=== PATIENT | male | born 1990 | race Hispanic/Latino ===

== ENCOUNTER 2023-06-08 09:21 | Emergency (ER) | payer OTHER ==
[~2023-06-08] VITALS: Ht 167.6 cm; Wt 73.5 kg
[2023-06-08 09:28] VITALS: O2SAT 98
[2023-06-08 09:44] LABS: RAPID GROUP A STREP negative (NEGATIVE)
[2023-06-08 09:49] LABS: SARS-CoV-2, RNA, NAAT NEGATIVE SARS CoV-2 (NEGATIVE)
[2023-06-08 09:57] LABS: INFLUENZA TYPE A Negative For Type A (NEGATIVE); INFLUENZA TYPE B Negative For Type B (NEGATIVE)
[2023-06-08 11:57] VITALS: BP 118/71; PULSE 82; RESP 18
[2023-06-08] MEDS ORDERED: OSEL75 PO (12:02)
== END 2023-06-08 12:06 | disposition home or self-care (01) ==
LOC: EDH 09:21
DX: R50.9 Fever, unspecified (principal); M79.10 Myalgia, unspecified site; Z20.828 Contact with and (suspected) exposure to other viral communicable diseases; Z20.822 Contact with and (suspected) exposure to COVID-19
CPT/HCPCS: 99283; 87635; 87880; 87804 ×2; C9803

== ENCOUNTER 2023-10-29 07:37 | Emergency (ER) | payer OTHER ==
[~2023-10-29] VITALS: Ht 167.6 cm; Wt 69.9 kg
[~2023-10-29 07:37] MED LIST: OSEL75 PO
[2023-10-29] MEDS: UNASYN 1.5GM+NS 100ML IV SCH (08:02)
[2023-10-29 08:07] VITALS: BP 126/70; PULSE 69; RESP 14; O2SAT 100
== END 2023-10-29 08:28 | disposition home or self-care (01) ==
LOC: EDH 07:37
DX: S02.5XXA Fracture of tooth (traumatic), initial encounter for closed fracture (principal); K04.7 Periapical abscess without sinus; X58.XXXA Exposure to other specified factors, initial encounter; Y93.89 Activity, other specified; Y92.89 Other specified places as the place of occurrence of the external cause; Y99.8 Other external cause status
CPT/HCPCS: 99284; 96365; J0295

== ENCOUNTER 2024-12-09 16:23 | Emergency (ER) | payer BC ==
[~2024-12-09] VITALS: Ht 167.6 cm; Wt 76.2 kg
--- NOTE | 2024-12-09 19:08 | NUR ---
ASSUMED CARE AT THIS TIME PT MOVED FROM LOBBY INTO FAST TRACK
[2024-12-09] MEDS ORDERED: KETO10TA2 PO (19:45)
--- NOTE | 2024-12-09 19:49 | ERN ---
General Chief Complaint: Hip Pain/Injury Stated Complaint: SEVERE HIP PAIN Time Seen by MD: 16:43 Time Seen by Midlevel: 16:43 Source: patient History of Present Illness Allergies: Coded Allergies: No Known Drug Allergies (Unverified Allergy, Unknown, 06/08/23) Home Meds Active Scripts Oseltamivir Phosphate (Tamiflu) 75 Mg Cap, 75 MG PO DAILY, #7 CAP Prov:REHAN NARVAEZ MD 06/08/23 Past Medical History Past Medical History: No Pertinent History Past Surgical History: None Social History Social History: Negative, Lives with family ED Course Orders Procedure Category Date Status Time Ketorolac PHA 12/09/24 Logged Tromethamine 30mg/Ml 20:00 Orphenadrine Citrate PHA 12/09/24 Logged (Norflex) 20:00 Triamcinolone Acet PHA 12/09/24 Logged 40mg/Ml 1ml (Kenalog 20:00 Current Medications Medications (Trade) Dose Ordered Sig/Pravin Route PRN Reason Start Time Stop Time Status Last Admin Dose Admin Ketorolac Tromethamine (toRADol) 30 mg ONCE ONCE IM 12/09/24 20:00 12/09/24 20:01 UNV Orphenadrine Citrate (Norflex) 60 mg ONCE ONCE IM 12/09/24 20:00 12/09/24 20:01 UNV Triamcinolone Acetonide (Kenalog 40) 40 mg ONCE ONCE IM 12/09/24 20:00 12/09/24 20:01 UNV Vital Signs Date Time Temp Pulse Resp B/P (MAP) Pulse Ox O2 Delivery O2 Flow Rate FiO2 12/09/24 16:48 97.5 79 18 137/87 98 Room Air DX & DISP Disposition: Discharge Departure Impression: Primary Impression: Sciatica, right side Condition: Stable Scripts Ketorolac Tromethamine (Ketorolac Tromethamine) 10 Mg Tablet 1 TAB PO TID for pain for 5 Days, #15 TAB 0 Refills Prov: AMANDA COOPER 12/09/24 Referrals: SELF,REFERRAL (PCP) LUKE VICKERS MD I have reviewed the case, and I agree with, Diagnosis and Plan AMANDA COOPER December 09, 2024 19:49
[2024-12-09] MEDS: TRIAMCINOLONE ACETONIDE 40 MG/ML 1ML VIAL IM ONE (19:56)
[2024-12-09] MEDS: ORPHENADRINE 60MG/2ML IM ONE (19:56)
[2024-12-09] MEDS: ketOROlac 30MG VIAL (30MG/ML) IM ONE (19:57)
[2024-12-09 20:04] VITALS: BP 127/85; PULSE 78; RESP 18; TEMP 97.9; O2SAT 98
== END 2024-12-09 20:09 | disposition home or self-care (01) ==
LOC: EDH 16:23
DX: M54.31 Sciatica, right side (principal)
CPT/HCPCS: 99284; 96372 ×3; J1885; J3301; J2360

== ENCOUNTER 2025-03-05 16:47 | Emergency (ER) | payer BC ==
[~2025-03-05] VITALS: Ht 167.6 cm; Wt 73.5 kg
[~2025-03-05 16:47] MED LIST changes: +KETO10TA2 PO
--- NOTE | 2025-03-05 16:54 | ERN ---
ED Note History of Present Illness Stated Complaint: HEADACHE,FEVER,CHILLS,BODYACHES,SORE THROAT Chief Complaint: Flu Symptoms Time Seen by MD: 16:52 Dictation: PATIENT IS A 34-YEAR-OLD MALE COMING IN TODAY WITH FEVER CHILLS AND FLU-LIKE SYMPTOMS TO INCLUDE BODY ACHES CLEAR RUNNY NOSE WITH DRY COUGH AND SORE THROAT WITH PAINFUL SWALLOWING ONSET YESTERDAY. NO LOSS OF TASTE OR SMELL. NO NAUSEA VOMITING NO DIARRHEA NO PRIMARY CARE DOCTOR. STAY WORKS AT [facility] Allergies: Coded Allergies: No Known Drug Allergies (Unverified Allergy, Unknown, 06/08/23) Home Meds Active Scripts Ketorolac Tromethamine (Ketorolac Tromethamine) 10 Mg Tablet, 1 TAB PO TID for pain for 5 Days, #15 TAB 0 Refills Prov:AMANDA COOPER 12/09/24 Oseltamivir Phosphate (Tamiflu) 75 Mg Cap, 75 MG PO DAILY, #7 CAP Prov:REHAN NARVAEZ MD 06/08/23 Past Medical History Past Medical History: No Pertinent History Surgical History: None Social History: Negative, Lives with family RN Note Reviewed/Agreed w/PFSH: Yes Review of System Dictation CONSTITUTIONAL: Negative except for HPI fever chills swallowing malaise HEAD/FACE: Negative except for HPI EENT: Negative except for HPI sore throat with painful RESPIRATORY: Negative except for HPI GASTROINTESTINAL/ABDOMINAL: Negative except for HPI GENITOURINARY: Negative except for HPI MUSCULOSKELETAL: Negative except for HPI INTEGUMENTARY: Negative except for HPI NEUROLOGICAL/PSYCH: Negative except for HPI HEMATOLOGIC/LYMPHATIC: Negative except for HPI All Systems Negative, Except as noted above. 13 point review of systems assessed and all negative except for above. Initial Vital Sign VS Vital Signs Date Time Temp Pulse Resp B/P (MAP) Pulse Ox O2 Delivery O2 Flow Rate FiO2 03/05/25 16:49 99.3 102 20 102/66 97 Room Air 0 03/05/25 17:54 21 Physical Exam Dictation Vital Signs reviewed General Appearance: Alert, oriented x 3, moderate acute distress, well developed, nourished. Head and Face: non-traumatic. Eyes: PERRL, pink conjunctivas, eyelid no trauma, anterior chamber with arcus senilis. Ears: Pinnas intact and no signs of trauma or erythema ear canals clear and no discharge TM no erythema Nose: No discharge, no bleeding. Oropharynx: Mouth normal, tongue pink, pharynx clear, moderate pharyngeal erythema, tonsils no exudates, no abscesses noted, mucous membrane moist uvula midline/voice is clear Neck: Supple, non-tender, no thyromegaly, no masses, no JVD, no bruits Breast:Deferred Chest:No tenderness, no crepitus, no paradoxical movement, no retractions Lungs:Clear, well-ventilated, symmetric, no rales, no wheezing, no rhonchi, no stridor, good breath sounds bilaterally Heart: Regular rate, regular rhythm, no murmur, no gallops Vascular: no peripheral edema, Abdomen: Soft, positive bowel sounds, nondistended, no guarding, nontender, no rebound, no masses no hepatomegaly, no splenomegaly, no Garcia's sign, no hernias. Rectal: Deferred Genital: Deferred Neurological: Normal speech, motor function intact, sensory function intact Musculoskeletal: Neck nontender, full range of motion, back nontender, full range of motion, Extremities: nontender, full range of motion Skin: Color pink, dry, no turgor, no rash, no lacerations, no abrasions, no contusions. Lymphatic: Deferred Results (Laboratory/Radiology) Laboratory/Radiology Laboratory Tests Test 03/05/25 16:58 Influenza Type A Antigen Negative For Type A Influenza Type B Antigen Negative For Type B SARS-CoV-2 Antigen (Rapid) POSITIVE FOR SARS AG Group A Streptococcus Rapid negative (NEGATIVE) Labs Reviewed?: Yes ED Course ED Course Orders Procedure Category Date Status Time Ibuprofen 800 Mg Tab PHA 03/05/25 In Process (Motrin) 17:00 Covid19 (Sars Antigen LAB 03/05/25 Complete Rapid) 16:52 Influenza Type A & B, LAB 03/05/25 Complete Rapid 16:52 Rapid (Group A Strep) LAB 03/05/25 Complete 16:52 Current Medications Medications (Trade) Dose Ordered Sig/Pravin Route PRN Reason Start Time Stop Time Status Last Admin Dose Admin Ibuprofen (moTRIN) 800 mg ONCE PO 03/05/25 17:00 03/05/25 21:00 03/05/25 17:58 Vital Signs Date Time Temp Pulse Resp B/P (MAP) Pulse Ox O2 Delivery O2 Flow Rate FiO2 03/05/25 17:54 99.3 102 20 102/66 97 Room Air* 0 21 03/05/25 16:49 99.3 102 20 102/66 97 Room Air 0 1800/patient is positive for SARs COVID. Additionally he will be treated for acute pharyngitis unspecified with the Augmentin Discharged home with Tessalon Ibuprofen Given rehydration instructions Medical Decision Making MDM Medical decision-making based on swabs for flu COVID and strep. SARs COVID positive Additionally we will be treated for acute pharyngitis unspecified Discharge med to include albuterol inhaler/Tessalon/Augmentin 875 Medrol Dosepak DX & DISP Disposition: Discharge Departure Impression: Primary Impression: COVID-19 virus infection Additional Impressions: Acute pharyngitis, unspecified, Fever Condition: Stable Scripts Methylprednisolone (Medrol) 4 Mg Tab.ds.pk 1 TAB PO AD for 6 Days, #21 TAB 0 Refills 6 on day 1 then reduce by one tablet daily until gone Prov: KASHIF STONE NP 03/05/25 Ibuprofen (Ibuprofen 800 mg Tab) 800 Mg Tab 800 MG PO Q8H PRN for fever or pain, #30 TAB 0 Refills Prov: KASHIF STONE NP 03/05/25 Amoxicillin/Potassium Clav (Amox Tr-K Clv 875-125 mg Tab) 875 Mg-125 Mg Tablet 1 EACH PO BID for 7 Days, #14 TAB 0 Refills Prov: KASHIF STONE NP 03/05/25 Additional Instructions: Follow-up with primary care provider in 1 to 2 days. Take medications as directed here in the emergency room. Okay to continue home medications unless otherwise discussed during your visit in the emergency room today. Return to your nearest emergency room if symptoms worsen or if there is no improvement. Call 911 if you need immediate assistance. Take Tylenol or Motrin over -the-counter as needed and if no contraindications are present. Increase oral hydration. A wound culture or urine culture was ordered here in the emergency room department please follow-up with primary care provider and advise them to get repeat ports from our facility. If you had any Darnell wrap/splints that were applied here, please do not remove them until you see your primary care or specialty. Take Augmentin as directed until gone. Take Medrol Dosepak as directed until gone. Take ibuprofen as needed for fever pain and increase your fluid intake. No work until 03/10/2025. Referrals: SELF,REFERRAL (PCP) Time of Disposition: 18:01 I have reviewed the case, and I agree with, Diagnosis and Plan KASHIF STONE [employer] Mar 05, 2025 16:54
[2025-03-05 17:14] LABS: RAPID GROUP A STREP negative (NEGATIVE)
[2025-03-05 17:24] LABS: INFLUENZA TYPE A Negative For Type A (NEGATIVE); INFLUENZA TYPE B Negative For Type B (NEGATIVE)
[2025-03-05 17:27] LABS: COVID19 (SARS ANTIGEN RAPID) POSITIVE FOR SARS AG (NEGATIVE)
[2025-03-05] MEDS ORDERED: AMOX1TAB16 PO (18:02)
[2025-03-05] MEDS ORDERED: IBUP-2077 PO (18:02)
[2025-03-05] MEDS ORDERED: METH4TAB3 PO (18:02)
[2025-03-05 19:10] VITALS: BP 111/62; PULSE 92; RESP 20; TEMP 98.2; O2SAT 97
== END 2025-03-05 19:11 | disposition home or self-care (01) ==
LOC: EDH 16:47
DX: U07.1 COVID-19 (principal); Z79.899 Other long term (current) drug therapy
CPT/HCPCS: 87426; 87804; 87880; 99283